=== PATIENT | male | born 1965 | race Hispanic/Latino ===

== ENCOUNTER 2018-01-09 05:38 | Day surgery (SDC) | payer MEDICARE ==
[2018-01-09] MEDS ORDERED: XYLOCAINE 1% 20 mL ONE (07:10)
[2018-01-09] MEDS ORDERED: MARCAINE 0.25% INFILTRATI ONE ×3 (07:10→08:25)
[2018-01-09] MEDS ORDERED: XYLOCAINE 1% 20 mL INFILTRATI ONE ×2 (08:25)
--- NOTE | 2018-01-09 09:08 | Short Stay Summary ---
Short Stay Documentation Date of service: 01/09/18 - History H&P: obtained from office - Allergies and Medications Current Medications: Allergies No Known Allergies Allergy (Verified 08/07/16 02:35) Home Medications Medication Instructions Recorded Confirmed Last Taken Type FLUoxetine [PROzac] 20 mg PO QDAY 01/04/18 01/09/18 01/09/18 04:00 History Zolpidem [Ambien] 5 mg PO QHS PRN 01/04/18 01/09/18 01/08/18 21:00 History traZODone [Desyrel] 200 mg PO QHS 01/04/18 01/09/18 01/08/18 21:00 History - Brief post op/procedure progress note Date of procedure: 01/09/18 Pre-op diagnosis: Right chest wall lipoma of the upper inner quadrant Post-op diagnosis: same Procedure: Right chest wall excisional biopsy Anesthesia: GETA Findings: Probable right chest wall lipoma of 3 cm excised in its entirety Surgeon: ZAIDA JAMES Estimated blood loss: minimal Pathology: list (right probable chest wall lipoma) Specimen disposition: to lab Condition: stable - Disposition Condition at discharge: Good Disposition: DC-01 TO HOME OR SELFCARE Short Stay Discharge Plan Activity: other (no heavy lifting) Diet: regular Wound: other (keep incision clean and dry and may shower in 24 hours) Follow up with: SABI ANGULO MD [Primary Care Provider] - 7 Days ZAIDA JAMES MD [Staff Physician] - 7 Days
--- NOTE | 2018-01-09 09:15 | Operative Report ---
Operative Report Operative Report: Date of Service: January 09, 2018 Preoperative diagnosis: Probable right chest wall lipoma the upper inner quadrant Postoperative diagnosis: Same Procedure: Right chest wall excisional biopsy of probable lipoma Surgeon: Alejandra Macias M.D. Anesthesia: Local Findings: Probable right chest wall lipoma at 3 o'clock position about 6-8 cm from the nipple of 3 cm completely excised in its entirety Complications: None Drains: None Disposition: PACU in good condition Indications for operative procedure: This is a 52-year-old gentleman with a probable right chest wall lipoma with symptomatic pain. Patient wanted to proceed with excisional biopsy. He wished to proceed with the above procedure. Procedure in detail: Patient was taking to minor procedure room. The right chest wall was shaved. The right chest wall was then prepped and draped in the normal sterile operative fashion. Probable right chest wall lipoma was palpable at the 3 o'clock position 6 cm from the nipple. Timeout was performed. The skin was anesthesized with 1% lidocaine mixed with quarter percent marcaine. A 3:00 radial skin incision was made with a 15 blade knife and dissection taken down to the subcutaneous tissue. The lipoma was encountered and was appropriately dissected free with the aid of the Bovie cautery. The lipoma was removed in its entirety. Hemostasis was obtained with the Bovie cautery. The biopsy site was irrigated. The subcutaneous tissues were approximated and closed using interrupted 3-0 Vicryl and skin brought together and closed using a running 4-0 Monocryl followed by skin affix. He tolerated the procedure very well and was transferred to PACU in good condition.
[2018-01-09 09:28] VITALS: BP 130/81
== END 2018-01-09 05:39 | disposition home or self-care (01) ==
LOC: OR 05:38
PROVIDERS: ATTEND Surgery
DX: D17.1 Benign lipomatous neoplasm of skin and subcutaneous tissue of trunk (principal); E11.9 Type 2 diabetes mellitus without complications; Z79.899 Other long term (current) drug therapy; Z87.891 Personal history of nicotine dependence
CPT/HCPCS: 82962; 88304